=== PATIENT | female | born 1965 | race African-American/Black ===

== ENCOUNTER 2024-12-25 05:36 | Emergency (ER) | payer OTHER ==
[~2024-12-25] VITALS: Ht 160 cm; Wt 70.0 kg
[2024-12-25 05:38] VITALS: TEMP 98.4
[2024-12-25] MEDS ORDERED: CEPH-558 PO (06:40)
[2024-12-25] MEDS ORDERED: SULF-261 PO (06:40)
[2024-12-25] MEDS: CEPHALEXIN MONOHYDRATE 500 MG CAPSULE PO ONE (07:08)
[2024-12-25] MEDS: ACETAMINOPHEN 500 MG TABLET PO ONE (07:08)
[2024-12-25] MEDS: BACITRACIN 0.9 GM PACKET OINTMENT TP ONE (07:08)
[2024-12-25] MEDS: SULFAMETHOX/TRIMETH DS 800-160 MG/TABLET PO ONE (07:08)
[2024-12-25 07:50] VITALS: BP 138/82; PULSE 80; RESP 16; O2SAT 99
== END 2024-12-25 08:01 | disposition home or self-care (01) ==
LOC: EMS 05:39
DX: L03.011 Cellulitis of right finger (principal); I10 Essential (primary) hypertension
CPT/HCPCS: 10060; 99284; 73140-TC; Z7502; Z7610